=== PATIENT | female | born 1970 | race Hispanic/Latino ===

== ENCOUNTER 2024-06-19 03:51 | Emergency (ER) | payer BC ==
--- OUTSIDE RECORDS SUMMARY | 2024-06-19 03:55 | XMS REPORT | Continuity of Care Document ---
Author Name Unknown Address [address] [facility] [place] [address] [facility] [place] Address [address] [facility] [place] [address] Care Team Providers Care Csr Name Role Phone CHEN HORTON Primary Care Physician UnavailChen Healy Attending Clinician Unavailable VITOR DING Attending Clinician VITOR Devine Attending Clinician Vitor Devine MD Attending Clinician + [phone] PORSHA ROSS Attending Clinician Unavailable PORSHA ROSS Attending Clinician Unavailable CAYETANO LÓPEZ Attending Clinician Unavailnadira villanueva Doctor Unassigned, [place] Attending Clinician BRITT Burgess Attending Clinician Unavailable Marbella Morrow MA Attending Clinician UnavailBritt Robin PA-C Attending Clinician [phone] SHAVON VILLELA Attending Clinician UnavailShavon Vasquez Attending Clinician [phone], [facility] Attending Clinician Unavailable MARIAM FLORENCE Attending Clinician Unavailable RILEY GIBBONS Attending Clinician Unavail Riley Hopper DO Attending Clinician Pob, [facility] Main Attending Clinician PORSHA Manzano Admitting Clinician Unavailable VITOR DING Admitting Clinician BRITT Kelly Admitting Clinician Unavailable Payers Payer Name Policy Type Policy Number Effective Date Expirati on Date Source [employer] [place] - OUT OF STATE [id number] 2022 00:00:00 [facility] 6 [id number] [place] [address] [id number] [facility] C1 [id number] [facility] Problems Condition Name Condition Details Condition Category Status Onset Date Resolution Date Last Treatment Date Treating Clinician Comments Source Encounter for screening colonoscop y Encounter for screening colonoscop y Disease Active 07-30 00:00: 00 [facility] Obesity (BMI 30-39.9) Obesity (BMI 30-39.9) Disease Active 03-03 00:00: 00 [facility] Screening for colorectal cancer Screening for colorectal cancer Disease Active 03-21 00:00: 00 Overview: Formattin g of this note might be different from the original. Added automatic ally from request for surgery [id number] [facility] Need for Tdap vaccinatio n Need for Tdap vaccinatio n Disease Active 2015-02 00:00: 00 [facility] Breast cancer screening Breast cancer screening Disease Active 2015-02 00:00: 00 [facility] Overweight (BMI 25.0-29.9) Overweight (BMI 25.0-29.9) Disease Active 2015-02 00:00: 00 [facility] Vitamin D deficiency Vitamin D deficiency Problem Active [facility] Mixed hyperlipid emia Moderate mixed hyperlipid emia not requiring statin therapy Problem Active [facility] Allergies, Adverse Reactions, Alerts Allergy Name Allergy Type Status Severity Reaction(s) Onset Date Inactive Date Treating Clinician Comments Source NO KNOWN ALLERGIE S Drug Class Active [facility] Social History Social Habit Start Date Stop Date Quantity Comments Source [facility] of Tobacco Use [facility] Sex Assigned At [facility] Alcoholic beverage intake 2024-03-19 00:00:00 2024-03-19 00:00:00 0 /d [facility] Alcohol intake 2023-03-12 00:00:00 2023-03-12 00:00:00 0 /d [facility] History of Social function 2023-03-12 00:00:00 2023-03-12 00:00:00 [facility] Exposure to SARS-CoV-2 (event) 2022-02-26 00:00:00 2022-03-08 08:32:00 Not sure [facility] Tobacco use and exposure 2022-03-08 00:00:00 2022-03-08 00:00:00 Smokeless tobacco non-user [facility] Smoking Status Start Date Stop Date Source Never smoked tobacco [facility] Medications Ordered Medication Name Filled Medication Name Start Date Stop Date Current Medication? Ordering Clinician Indication Dosage Frequency Signature (SIG) Comments Components Source multivitami n tablet 03-19 08:22: 09 Yes 1{tbl} Take 1 tablet by mouth in the morning. [facility] water for irrigation irrigation solution 09-15 11:53: 00 09-15 12:59 :47 No PRN, Starting on Sat09/16/23 at 0653, Until Sat09/16/23 at 0759, Routine, Intra-op [facility] simethicone (GAS RELIEF (SIMETHICON E)) 40 mg/0.6 mL drops 09-15 11:53: 00 09-15 12:59 :47 No PRN, Starting on Sat09/16/23 at 0653, Until Sat09/16/23 at 0759, Routine, Intra-op [facility] lactated ringers IV infusion 1,000 mL 09-15 11:45: 00 09-15 11:52 :00 No 1000mL at 42 mL/hr, 1,000 mL, IV Infusion, ONCE, 1 dose, On Sat09/16/23 at 0645, Routine, DSU Pre-op [facility] omega-3s-dh a-epa-fish oil 750-300-400 -50 mg Cap 08-28 11:18: 44 Yes Take by mouth daily. [facility] cholecalcif ken, vitD3,/vit K2 (VITAMIN D3-VITAMIN K2) 125 mcg (5,000 unit)-100 mcg Cap 08-28 11:16: 50 Yes Take by mouth daily. [facility] Cholecalcif ken, Vitamin D3, (VITAMIN D3) 2,000 unit capsule 08-28 11:16: 50 09-15 00:00 :00 No Take by mouth daily. [facility] vitamin C with jeffrey hips (VITAMIN C) 1,000 mg tablet 08-28 11:16: 50 09-15 00:00 :00 No 1 tablet Orally Once a day [facility] Garlic 1,000 mg Cap 08-28 11:16: 50 09-15 00:00 :00 No as directed Orally [facility] ascorbic acid (VITAMIN C ORAL) 08-28 11:14: 49 09-15 00:00 :00 No Take by mouth. [facility] Cholecalcif ken, Vitamin D3, (VITAMIN D3) 2,000 unit capsule 07-30 13:15: 10 Yes Take by mouth daily. [facility] calcium carbonate (CALCIUM 500 ORAL) 07-30 13:15: 10 Yes Take by mouth. [facility] Garlic 1,000 mg Cap 07-30 13:15: 10 Yes as directed Orally [facility] sodium,pota ssium,mag sulfates 17.5-3.13-1 .6 gram 07-30 00:00: 00 08-02 04:59 :00 No 177mL Take 177 mL by mouth in the morning for 2 doses. [facility] Cholecalcif ken, Vitamin D3, (VITAMIN D3) 2,000 unit capsule 03-12 08:55: 13 Yes Take by mouth daily. [facility] calcium carbonate (CALCIUM 500 ORAL) 03-12 08:55: 13 Yes Take by mouth. [facility] vitamin C with jeffrey hips (VITAMIN C) 1,000 mg tablet 03-12 08:55: 13 Yes 1 tablet Orally Once a day [facility] Garlic 1,000 mg Cap 03-12 08:55: 13 Yes as directed Orally [facility] elsa Farias B.lactis (DIGESTIVE ADVANTAGE ADVANCED ORAL) 2021-02 00:00: 00 09-15 00:00 :00 No [facility] ketorolac (TORADOL) injection 30 mg 09-05 15:10: 00 09-05 15:24 :00 No [id number] 30mg [facility] methylPREDN ISolone (MEDROL, JOSE,) 4 mg tablets 09-05 00:00: 00 03-08 00:00 :00 No [id number] Take by mouth SEE-INSTRU CTIONS. follow package directions [facility] ascorbic acid (VITAMIN C ORAL) 03-08 09:00: 23 Yes Take by mouth. [facility] calcium carbonate (CALCIUM 500 ORAL) 03-03 08:55: 36 Yes Take by mouth. [facility] Cholecalcif ken, Vitamin D3, (VITAMIN D3) 2,000 unit capsule 03-03 08:30: 22 Yes Take by mouth daily. [facility] peg-electro lyte soln 236-22.74-6 .74 -5.86 gram solution 03-21 00:00: 00 03-08 00:00 :00 No [id number] 4000mL Take 4,000 mL by mouth SEE-INSTRU CTIONS. Take as directed [facility] Garlic 1000 MG Garlic 1000 MG No Garlic 1000 MG Biotin 5000 5 MG Biotin 5000 5 MG No 1{capsu le} QD Biotin 5000 5 MG Vitamin D 50 MCG (1999) Vitamin D 50 MCG (1999) No 1{table t} QD Vitamin D 50 MCG (1999) Immunizations Ordered Immunization Name Filled Immunization Name Date Status Comments Source Flu Injectable MDCK Pres-Free (FLUCELVAX) 2024-03-19 00:00:00 Completed TDAP 2023-09-16 06:33:00 Completed [facility] Influenza Virus Vaccine 2023-09-16 06:33:00 Completed [facility] SARS-COV-2 COVID-19 PFIZER VACCINE 2023-09-16 06:33:00 Completed [facility] Influenza Virus Vaccine Quad .5 mL IM 6+ MO (FLUZONE/FLULAVAL/F LUARIX) 2023-09-16 06:33:00 Completed [facility] Influenza Virus Vaccine Quad IM, Preserv and ABX Free 6 MO-64 YRS (FLUCELVAX) 2023-09-16 06:33:00 Completed [facility] TDAP 2023-07-31 13:30:00 Completed [facility] Influenza Virus Vaccine 2023-07-31 13:30:00 Completed [facility] SARS-COV-2 COVID-19 PFIZER VACCINE 2023-07-31 13:30:00 Completed [facility] Influenza Virus Vaccine Quad .5 mL IM 6+ MO (FLUZONE/FLULAVAL/F LUARIX) 2023-07-31 13:30:00 Completed [facility] Influenza Virus Vaccine Quad .5 mL IM 6+ MO (FLUZONE/FLULAVAL/F LUARIX) 2023-07-31 13:30:00 Completed [facility] Influenza Virus Vaccine Quad IM, Preserv and ABX Free 6 MO-64 YRS (FLUCELVAX) 2023-07-31 13:30:00 Completed [facility] TDAP 2023-03-21 00:00:00 Completed [facility] Influenza Virus Vaccine 2023-03-21 00:00:00 Completed [facility] SARS-COV-2 COVID-19 PFIZER VACCINE 2023-03-21 00:00:00 Completed [facility] Influenza Virus Vaccine Quad .5 mL IM 6+ MO (FLUZONE/FLULAVAL/F LUARIX) 2023-03-21 00:00:00 Completed [facility] Influenza Virus Vaccine Quad IM, Preserv and ABX Free 6 MO-64 YRS (FLUCELVAX) 2023-03-21 00:00:00 Completed [facility] TDAP 2023-03-12 09:00:00 Completed [facility] Influenza Virus Vaccine 2023-03-12 09:00:00 Completed [facility] Influenza Virus Vaccine Quad IM, Preserv and ABX Free 6 MO-64 YRS (FLUCELVAX) 2023-03-12 09:00:00 Completed [facility] SARS-COV-2 COVID-19 PFIZER VACCINE 2023-03-12 09:00:00 Completed [facility] Influenza Virus Vaccine Quad .5 mL IM 6+ MO (FLUZONE/FLULAVAL/F LUARIX) 2023-03-12 09:00:00 Completed [facility] Influenza Virus Vaccine Quad .5 mL IM 6+ MO (FLUZONE/FLULAVAL/F LUARIX) 2023-03-12 09:00:00 Completed [facility] TDAP 2023-03-05 00:00:00 Completed [facility] Influenza Virus Vaccine 2023-03-05 00:00:00 Completed [facility] SARS-COV-2 COVID-19 PFIZER VACCINE 2023-03-05 00:00:00 Completed [facility] Influenza Virus Vaccine Quad .5 mL IM 6+ MO (FLUZONE/FLULAVAL/F LUARIX) 2023-03-05 00:00:00 Completed [facility] Influenza Virus Vaccine Quad IM, Preserv and ABX Free 6 MO-64 YRS (FLUCELVAX) 2023-03-05 00:00:00 Completed [facility] Influenza Virus Vaccine Quad IM, Preserv and ABX Free 6 MO-64 YRS (FLUCELVAX) 2022-11-28 00:00:00 Completed Influenza Virus Vaccine Quad IM, Preserv and ABX Free 6 MO-64 YRS 2021-12-28 00:00:00 Completed [facility] Influenza Virus Vaccine Quad IM, Preserv and ABX Free 6 MO-64 YRS 2021-12-28 00:00:00 Completed [facility] Influenza Virus Vaccine Quad IM, Preserv and ABX Free 6 MO-64 YRS 2021-12-28 00:00:00 Completed [facility] Influenza Virus Vaccine Quad .5 mL IM 6+ MO 2020-11-21 00:00:00 Completed [facility] Influenza Virus Vaccine Quad .5 mL IM 6+ MO 2020-11-21 00:00:00 Completed [facility] Influenza Virus Vaccine Quad .5 mL IM 6+ MO 2020-11-21 00:00:00 Completed [facility] Influenza Virus Vaccine Quad .5 mL IM 6+ MO (FLUZONE/FLULAVAL/F LUARIX) 2020-11-21 00:00:00 Completed SARS-COV-2 COVID-19 PFIZER VACCINE 2020-05-30 00:00:00 Completed [facility] SARS-COV-2 COVID-19 PFIZER VACCINE 2020-05-30 00:00:00 Completed [facility] SARS-COV-2 COVID-19 PFIZER VACCINE 2020-05-30 00:00:00 Completed [facility] SARS-COV-2 COVID-19 PFIZER VACCINE 2020-05-30 00:00:00 Completed [facility] SARS-COV-2 COVID-19 PFIZER VACCINE 2020-05-30 00:00:00 Completed [facility] SARS-COV-2 COVID-19 PFIZER VACCINE 2020-05-30 00:00:00 Completed [facility] SARS-COV-2 COVID-19 PFIZER VACCINE 2020-05-30 00:00:00 Completed [facility] SARS-COV-2 COVID-19 PFIZER VACCINE 2020-05-30 00:00:00 Completed [facility] SARS-COV-2 COVID-19 PFIZER VACCINE 2020-05-30 00:00:00 Completed [facility] SARS-COV-2 COVID-19 PFIZER VACCINE 2020-05-09 00:00:00 Completed [facility] SARS-COV-2 COVID-19 PFIZER VACCINE 2020-05-09 00:00:00 Completed [facility] SARS-COV-2 COVID-19 PFIZER VACCINE 2020-05-09 00:00:00 Completed [facility] SARS-COV-2 COVID-19 PFIZER VACCINE 2020-05-09 00:00:00 Completed [facility] SARS-COV-2 COVID-19 PFIZER VACCINE 2020-05-09 00:00:00 Completed [facility] SARS-COV-2 COVID-19 PFIZER VACCINE 2020-05-09 00:00:00 Completed [facility] SARS-COV-2 COVID-19 PFIZER VACCINE 2020-05-09 00:00:00 Completed [facility] SARS-COV-2 COVID-19 PFIZER VACCINE 2020-05-09 00:00:00 Completed [facility] Influenza Virus Vaccine Quad .5 mL IM 6+ MO 2019-10-22 00:00:00 Completed [facility] Influenza Virus Vaccine Quad .5 mL IM 6+ MO 2019-10-22 00:00:00 Completed [facility] Influenza Virus Vaccine Quad .5 mL IM 6+ MO 2019-10-22 00:00:00 Completed [facility] Influenza Virus Vaccine Quad .5 mL IM 6+ MO (FLUZONE/FLULAVAL/F LUARIX) 2019-10-22 00:00:00 Completed Influenza Virus Vaccine Quad .5 mL IM 6+ MO 2018-11-30 00:00:00 Completed [facility] Influenza Virus Vaccine Quad .5 mL IM 6+ MO 2018-11-30 00:00:00 Completed [facility] Influenza Virus Vaccine Quad .5 mL IM 6+ MO 2018-11-30 00:00:00 Completed [facility] Influenza Virus Vaccine 2018-01-25 00:00:00 Completed [facility] Influenza Virus Vaccine 2018-01-25 00:00:00 Completed [facility] Influenza Virus Vaccine 2018-01-25 00:00:00 Completed [facility] Influenza Virus Vaccine 2018-01-25 00:00:00 Completed [facility] Influenza Virus Vaccine 2018-01-25 00:00:00 Completed [facility] Influenza Virus Vaccine 2018-01-25 00:00:00 Completed [facility] Influenza Virus Vaccine 2018-01-25 00:00:00 Completed [facility] Influenza Virus Vaccine 2018-01-25 00:00:00 Completed [facility] TDAP 2016-01-18 00:00:00 Completed [facility] TDAP 2016-01-18 00:00:00 Completed [facility] TDAP 2016-01-18 00:00:00 Completed [facility] TDAP 2016-01-18 00:00:00 Completed [facility] TDAP 2016-01-18 00:00:00 Completed [facility] TDAP 2016-01-18 00:00:00 Completed [facility] TDAP 2016-01-18 00:00:00 Completed [facility] TDAP 2016-01-18 00:00:00 Completed [facility] Vital Signs Vital Name Observation Time Observation Value Comments S ource height 2024-06-15 09:00:00 64 [in_i] Commo n [facility] weight 2024-06-15 09:00:00 192.8 [lb_av] Co mmon [facility] temperature 2024-06-15 09:00:00 97.4 [degF] Com mon [facility] bmi 2024-06-15 09:00:00 33.09 kg/m2 Comm on [facility] oximetry 2024-06-15 09:00:00 100 % Commo n [facility] respiratory rate 2024-06-15 09:00:00 16 /min [facility] blood pressure systolic 2024-06-15 09:00:00 133 mm[Hg] [facility] blood pressure diastolic 2024-06-15 09:00:00 66 mm[Hg] [facility] Systolic blood pressure 2024-03-19 14:22:00 128 mm[Hg] [facility] Diastolic blood pressure 2024-03-19 14:22:00 82 mm[Hg] [facility] Heart rate 2024-03-19 14:16:00 67 /min [facility] Body temperature 2024-03-19 14:16:00 36.94 Gina [facility] Respiratory rate 2024-03-19 14:16:00 16 /min [facility] Body height 2024-03-19 14:16:00 162.6 cm [facility] Body weight 2024-03-19 14:16:00 86.592 kg [facility] BMI 2024-03-19 14:16:00 32.77 kg/m2 [facility] Systolic blood pressure 2023-09-16 13:45:00 139 mm[Hg] [facility] Diastolic blood pressure 2023-09-16 13:45:00 70 mm[Hg] [facility] Heart rate 2023-09-16 13:45:00 53 /min [facility] Oxygen saturation in Arterial blood by Pulse oximetry 2023-09-16 13:45:00 99 /min [facility] Respiratory rate 2023-09-16 13:20:00 14 /min [facility] Body temperature 2023-09-16 13:00:00 36.06 Gina [facility] Body height 2023-08-29 17:50:00 162.6 cm [facility] Body weight 2023-08-29 17:50:00 88.2 kg [facility] BMI 2023-08-29 17:50:00 33.38 kg/m2 [facility] Heart rate 2023-09-16 13:20:00 60 /min [facility] Respiratory rate 2023-09-16 13:20:00 14 /min [facility] Oxygen saturation in Arterial blood by Pulse oximetry 2023-09-16 13:20:00 98 /min [facility] Systolic blood pressure 2023-09-16 13:15:00 107 mm[Hg] [facility] Diastolic blood pressure 2023-09-16 13:15:00 76 mm[Hg] [facility] Body temperature 2023-09-16 13:00:00 36.06 Gina [facility] Body height 2023-08-29 17:50:00 162.6 cm [facility] 2023-08-29 17:50:00 88.2 kg [facility] BMI 2023-08-29 17:50:00 33.38 kg/m2 [facility] Systolic blood pressure 2023-07-31 18:16:00 133 mm[Hg] [facility] Diastolic blood pressure 2023-07-31 18:16:00 81 mm[Hg] [facility] Heart rate 2023-07-31 18:16:00 83 /min [facility] Body temperature 2023-07-31 18:16:00 36.56 Gina [facility] Respiratory rate 2023-07-31 18:16:00 18 /min [facility] Body height 2023-07-31 18:16:00 162.6 cm [facility] Body weight 2023-07-31 18:16:00 88.179 kg [facility] BMI 2023-07-31 18:16:00 33.37 kg/m2 [facility] Oxygen saturation in Arterial blood by Pulse oximetry 2023-07-31 18:16:00 98 /min [facility] height 2023-05-22 08:00:00 64 [in_i] Commo n [facility] weight 2023-05-22 08:00:00 190.2 [lb_av] Co mmon [facility] temperature 2023-05-22 08:00:00 97.3 [degF] Com mon [facility] bmi 2023-05-22 08:00:00 32.64 kg/m2 Comm on [facility] oximetry 2023-05-22 08:00:00 100 % Commo n [facility] respiratory rate 2023-05-22 08:00:00 16 /min [facility] blood pressure systolic 2023-05-22 08:00:00 139 mm[Hg] [facility] blood pressure diastolic 2023-05-22 08:00:00 76 mm[Hg] [facility] Systolic blood pressure 2023-03-12 14:54:00 131 mm[Hg] [facility] Diastolic blood pressure 2023-03-12 14:54:00 80 mm[Hg] [facility] Heart rate 2023-03-12 14:54:00 76 /min [facility] Res[facility] 2023-03-12 14:54:00 18 /min [facility] Body height 2023-03-12 14:54:00 162.6 cm [facility] Body weight 2023-03-12 14:54:00 86.637 kg [facility] BMI 2023-03-12 14:54:00 32.79 kg/m2 [facility] height 2022-05-21 08:20:00 64 [in_i] Commo n [facility] weight 2022-05-21 08:20:00 185.8 [lb_av] Co mmon [facility] temperature 2022-05-21 08:20:00 97.9 [degF] Com mon [facility] bmi 2022-05-21 08:20:00 31.89 kg/m2 Comm on [facility] oximetry 2022-05-21 08:20:00 97 % Commo n [facility] respiratory rate 2022-05-21 08:20:00 16 /min [facility] blood pressure systolic 2022-05-21 08:20:00 133 mm[Hg] [facility] blood pressure diastolic 2022-05-21 08:20:00 74 mm[Hg] [facility] Systolic blood pressure 2022-03-08 14:41:00 125 mm[Hg] [facility] Diastolic blood pressure 2022-03-08 14:41:00 85 mm[Hg] [facility] Heart rate 2022-03-08 14:41:00 64 /min [facility] Body temperature 2022-03-08 14:41:00 36.89 Gina [facility] Respiratory rate 2022-03-08 14:41:00 18 /min [facility] Body height 2022-03-08 14:41:00 162.6 cm [facility] Body weight 2022-03-08 14:41:00 83.008 kg [facility] BMI 2022-03-08 14:41:00 31.41 kg/m2 [facility] Systolic blood pressure 2021-09-05 14:56:00 122 mm[Hg] [facility] Diastolic blood pressure 2021-09-05 14:56:00 70 mm[Hg] [facility] Heart rate 2021-09-05 14:56:00 80 /min [facility] Body temperature 2021-09-05 14:56:00 36.72 Gina [facility] Respiratory rate 2021-09-05 14:56:00 18 /min [facility] Body height 2021-09-05 14:56:00 162.6 cm [facility] Body weight 2021-09-05 14:56:00 82.283 kg [facility] BMI 2021-09-05 14:56:00 31.14 kg/m2 [facility] Oxygen saturation in Arterial blood by Pulse oximetry 2021-09-05 14:56:00 97 /min [facility] height 2021-04-18 08:20:00 64 [in_i] Commo n [facility] weight 2021-04-18 08:20:00 184 [lb_av] Comm on [facility] temperature 2021-04-18 08:20:00 97.5 [degF] Com mon [facility] bmi 2021-04-18 08:20:00 31.58 kg/m2 Comm on [facility] oximetry 2021-04-18 08:20:00 98 % Commo n [facility] respiratory rate 2021-04-18 08:20:00 16 /min [facility] blood pressure systolic 2021-04-18 08:20:00 125 mm[Hg] [facility] blood pressure diastolic 2021-04-18 08:20:00 65 mm[Hg] [facility] Systolic blood pressure 2021-03-08 14:57:00 127 mm[Hg] [facility] Diastolic blood pressure 2021-03-08 14:57:00 85 mm[Hg] [facility] Heart rate 2021-03-08 14:57:00 67 /min [facility] Body temperature 2021-03-08 14:57:00 36.61 Gina [facility] Body height 2021-03-08 14:57:00 162.6 cm [facility] Body weight 2021-03-08 14:57:00 82.373 kg [facility] BMI 2021-03-08 14:57:00 31.17 kg/m2 [facility] height 2020-04-15 09:40:00 64 [in_i] Commo n [facility] weight 2020-04-15 09:40:00 180.8 [lb_av] Co mmon [facility] temperature 2020-04-15 09:40:00 97.7 [degF] Com mon [facility] bmi 2020-04-15 09:40:00 31.03 kg/m2 Comm on [facility] oximetry 2020-04-15 09:40:00 97 % Commo n [facility] respiratory rate 2020-04-15 09:40:00 16 /min [facility] blood pressure systolic 2020-04-15 09:40:00 126 mm[Hg] [facility] blood pressure diastolic 2020-04-15 09:40:00 60 mm[Hg] [facility] Procedures Procedure Date / Time Performed Performing Clinician Source FLU VACC ([id number]), 6 MO-64 YRS, .5ML, IM, TIV (FLUCELVAX) 2024-03-19 14:24:52 Vitor Ding [facility] COLONOSCOPY 2023-09-16 12:10:00 Porsha Ross [facility] ASSIGNMENT OF BENEFITS 2022-08-24 14:03:10 Docto r Unassigned, [place] [facility] XR LUMBAR SPINE 3 VW 2021-09-05 15:21:30 Nora [facility] [facility] ASSIGNMENT OF BENEFITS 2021-07-14 19:39:38 Docdez lewis Unassigned, [place] [facility] Encounters Start Date/Time End Date/Time Encounter Type Admission Type Attending [facility] Care Department Encounter ID Source 2024-05-21 08:28:00 Outpatient Chen [facility] [id number] [facility] 2023-05-20 14:03:00 Outpatient Chen Horton [facility] [id number] [facility] 2022-05-21 08:09:00 Outpatient Chen Horton [facility] [id number] [facility] 2022-05-16 10:42:01 Outpatient Chen Horton [facility] [id number] [facility] 2021-09-05 15:30:00 Outpatient Chen Horton [facility] [id number] [facility] 2021-04-17 15:20:01 Outpatient Chen Horton [facility] [id number] [facility] 2021-03-15 12:33:57 Outpatient Chen Horton [facility] [id number] [facility] 2021-03-15 11:09:57 Outpatient Chen Horton [facility] [id number] [facility] 2025-03-23 08:30:00 2025-03-23 08:30:00 Outpatient VITOR LUJAN MARISOL [facility] [id number] [facility] 2024-06-15 00:00:00 2024-06-15 00:00:00 PREV VISIT EST AGE 40-64 [facility] [id number] [facility] 2024-03-19 08:30:00 2024-03-19 08:53:19 Outpatient R ARETHA-SARITA S, VITOR ARETHA-ZAHEER VELASCOSOL [facility] [id number] [facility] 2024-03-19 08:30:00 2024-03-19 08:53:19 Office Visit Vitor Vu [facility] 1.840.114 350.1.13.10 4.2.7.2.686 [id number] [facility] 2023-10-28 00:00:00 2023-10-28 00:00:00 (TEL) [facility] [id number] [facility] 2023-09-16 06:33:00 2023-09-16 09:43:00 Outpatient R [facility]ANDANA[facility] [id number] [facility] 2023-09-16 06:33:00 2023-09-16 09:43:00 Hospital Encounter Vandana [facility] 1.2840.114 350.1.13.10 4.2.7.2.686 [id number] [facility] 2023-09-16 07:20:00 2023-09-16 08:21:00 [facility] 1.2.840.114 350.1.13.10 4.2.7.2.686 [id number] [facility] 2023-08-30 09:19:13 2023-08-30 23:59:00 Outpatient R ARETHA-SARITA S, VITOR ARETHA-SARITA SZAHEERVITOR [facility] [id number] [facility] 2023-08-30 09:19:13 2023-08-30 23:59:00 Hospital Encounter Aretha-Sarita sZaheerVitor [facility] 1.2.840.114 350.1.13.10 4.2.7.2.686 [id number] [facility] 2023-08-01 15:15:00 2023-08-01 15:15:00 Outpatient R CAYETANO LÓPEZ [facility] [id number] [facility] 2023-07-31 13:30:00 2023-07-31 14:54:05 [facility] [id number] [facility] 2023-07-31 13:30:00 2023-07-31 14:54:[address] [facility] 1.114 350..13.10 4.2.7.2.686 [id number] [facility] 2023-05-23 00:00:00 2023-05-23 00:00:00 [facility] [id number] [facility] 2023-05-22 00:00:00 2023-05-22 00:00:00 PREV VISIT EST AGE 40-64 [facility] [id number] [facility] 2023-03-21 00:00:00 2023-03-21 00:00:00 Patient Secure Msg Doctor Unassigned, [place] [facility] 1.114 350.1.13.10 4.2.7.2.686 [id number] [facility] 2023-03-12 09:00:00 2023-03-12 09:10:48 Outpatient R VITOR VU MARISOL [facility] [id number] [facility] 2023-03-12 09:00:00 2023-03-12 09:10:48 Office Visit Vitor Vu [facility] 1.114 350.1.13.10 4.2.7.2.686 [id number] [facility] 2023-03-12 09:00:00 2023-03-12 09:00:00 Outpatient VITOR LUJAN MARISOL [facility] [id number] [facility] 2023-03-05 00:00:00 2023-03-05 00:00:00 Pre Visit Outreach Marbella Morrow 1.840.114 350.1.13.10 4.2.7.2.686 [id number] [facility] 2022-08-24 09:06:36 2022-08-24 23:59:00 Outpatient BRITT HICKMAN [facility] [id number] [facility] 2022-08-24 09:06:36 2022-08-24 23:59:00 Hospital Encounter Britt Vilchis [facility] 1.840.114 350.1.13.10 4.2.7.2.686 [id number] [facility] 2022-08-24 00:00:00 2022-08-24 00:00:00 Orders Only Doctor Unassigned, [place] [facility] 1.840.114 350.1.13.10 4.2.7.2.686 [id number] [facility] 2022-07-19 00:00:00 2022-07-19 00:00:00 Outpatient BRITT HICKMAN [facility] [id number] [facility] 2022-05-21 00:00:00 2022-05-21 00:00:00 PREV VISIT EST AGE 40-64 [facility] [id number] [facility] 2022-03-08 09:00:00 2022-03-08 09:30:00 Office Visit Britt Vilchis [facility] 1.840.114 350.1.13.10 4.2.7.2.686 [id number] [facility] 2022-03-08 09:00:00 2022-03-08 09:00:00 Outpatient BRITT HICKMAN [facility] [id number] [facility] 2021-09-05 10:11:18 2021-09-05 23:59:00 Outpatient R MANOHAR [facility] [id number] [facility] 2021-09-05 10:11:18 2021-09-05 23:59:00 Hospital Encounter Manohar, Critical access hospital?[facility] 1.840.114 350.1.13.10 4.2.7.2.686 [id number] [facility] 2021-09-05 10:00:00 2021-09-05 10:20:58 Urgent Care Manohar Critical access hospital?[facility] 1.84.114 350.1.13.10 4.2.7.2.686 [id number] [facility] 2021-07-14 14:40:45 2021-07-14 23:59:00 Outpatient BRITT HICKMAN [facility] [id number] [facility] 2021-07-14 14:40:00 2021-07-14 23:59:00 Hospital Encounter Britt Vilchis [facility] 1.84.114 350.1.13.10 4.2.7.2.686 [id number] [facility] 2021-07-14 00:00:00 2021-07-14 00:00:00 Orders Only Doctor Unassigned, [place] [facility] 1.2840.114 350.1.13.10 4.2.7.2.686 [id number] [facility] 2021-06-08 00:00:00 2021-06-08 00:00:00 (TEL) [facility]C [facility] [id number] [facility] 2021-04-18 00:00:00 2021-04-18 00:00:00 PREV VISIT EST AGE 40-64 STLMLC [facility] [id number] [facility] 2021-03-08 09:30:00 2021-03-08 09:30:00 [employer] Visit 2, Adc Lab Britt Vilchis [facility] 1.2.840.114 350.1.13.10 4.2.7.2.686 [id number] [facility] 2021-03-08 09:00:00 2021-03-08 09:15:09 Outpatient Adi VILCHIS [facility] [id number] [facility] 2021-03-08 09:00:00 2021-03-08 09:15:09 Office Visit Britt Vilchis [facility] 1.2.840.114 350.1.13.10 4.2.7.2.686 [id number] [facility] 2020-05-30 13:30:00 2020-05-30 13:30:00 Outpatient MARIAM UMANZOR [facility] [id number] [facility] 2020-05-09 13:30:00 2020-05-09 13:30:00 Outpatient RILEY GIBBONS [facility] [id number] [facility] 2020-05-05 00:00:00 2020-05-05 00:00:00 Patient Outreach Riley Gibbons [facility] 1..840.114 350.1.13.10 4.2.7.2.686 [id number] [facility] 2020-04-15 00:00:00 2020-04-15 00:00:00 PREV VISIT EST AGE 40-64 STLMLC [facility]C [id number] [facility] 2020-03-23 08:34:28 2020-03-23 23:59:00 [facility] 1.114 350.1.13.10 4.2.7.2.686 [id number] [facility] 2020-03-23 00:00:00 2020-03-23 00:00:00 Outpatient Adi MENDESDEJA [facility] [id number] [facility] 2020-03-03 08:22:36 2020-03-03 09:13:43 Office Visit Deng [facility] 1.114 350.1.13.10 4.2.7.2.686 [id number] [facility] 2020-03-03 08:30:00 2020-03-03 08:30:00 Outpatient R DENG [facility] [id number] [facility] 2019-04-14 11:00:00 2019-04-14 11:00:00 [facility] [id number] [facility] 2019-04-03 08:01:58 2019-04-03 23:59:00 Outpatient Adi DENG [facility] [id number] [facility] 2019-04-03 08:01:00 2019-04-03 23:59:00 Hospital Encounter Deng [facility] 1..114 350.1.13.10 4.2.7.2.686 [id number] [facility] 2019-04-03 00:00:00 2019-04-03 00:00:00 Orders Only Doctor Unassigned, [place] [facility] 1.114 350.1.13.10 4.2.7.2.686 [id number] [facility] 2019-03-03 08:58:11 2019-03-03 15:20:43 [employer] Visit Pob, Monika Lab Main Britt Vilchis [facility] 1.2.840.114 350.1.13.10 4.2.7.2.686 [id number] [facility] 2019-03-03 08:18:04 2019-03-03 09:08:43 Office Visit Britt Vilchis [facility] 1.2.840.114 350.1.13.10 4.2.7.2.686 [id number] [facility] 2019-03-03 00:00:00 2019-03-03 00:00:00 Orders Only Doctor Unassigned, [place] [facility] 1.2.840.114 350.1.13.10 4.2.7.2.686 [id number] [facility] Results Test Description Test Time Test Comments Results Result Co mments Source History and Physical Notes Date/Time Note Provider Source 2023-09-16 06:58:07 Interval H&P: I interviewed and examined the patient today. Additionally, I reviewed laboratory results, imaging, and microbiology. Compared to the most recent H&P, there have been no major changes. The risks of the procedure were explained. All questions were answered, voiced understanding and agreement. Informed written consent was obtained. Plan is to proceed with colonoscopy. Jamie Ewing MD 09/16/23 6:58 AM GENERAL SURGERY CLINIC NOTE Reason for Visit / Chief Complaint: Screening colonoscopy History of Present Illness: Alison Medley is a 52 year old female with PMHx as below who presents for screening colonoscopy. This is her first colonoscopy. She had started pre-biotics and noticed some constipation. She has been been off now for 4-5 months, bowel movement is getting regular - daily bowel movements, soft, normal. +Blood, but reports hemorrhoid. She feels pain at the hemorrhoid. No unexplained weight loss. She is gaining weight, she is going through menopause. x 2. No family history of colon cancer Past Medical History: Past Medical History: Diagnosis Date Abnormal uterine bleeding Leiomyoma of uterus Past Surgical History: Past Surgical History: Procedure Laterality Date SECTION ENDOMETRIAL ABLATION 03/2012 TUBAL LIGATION Allergies: No Known Allergies Medications: Current Discharge Medication List CONTINUE these medications which have NOT CHANGED Details cholecalciferol, vitD3,/vit K2 (VITAMIN D3-VITAMIN K2) 125 mcg (5,000 unit)-100 mcg Cap Take by mouth daily. yjelp-9u-vea-epa-fish oil [phone] mg Cap Take by mouth daily. !! ascorbic acid (VITAMIN C ORAL) Take by mouth. calcium carbonate (CALCIUM 500 ORAL) Take by mouth. calcium citrate/vitamin D3 (CITRACAL + D ORAL) Citracal + D Garlic 1,000 mg Cap as directed Orally L.acidoph,paracasei, B.lactis (DIGESTIVE ADVANTAGE ADVANCED ORAL) !! vitamin C with jeffrey hips (VITAMIN C) 1,000 mg tablet 1 tablet Orally Once a day BIOTIN ORAL Take by mouth. Cholecalciferol, Vitamin D3, (VITAMIN D3) 2,000 unit capsule Take by mouth daily. !! - Potential duplicate medications found. Please discuss with provider. Current Facility-Administered Medications Medication Dose Route Frequency Last Rate Last Admin simethicone (GAS RELIEF (SIMETHICONE)) 40 mg/0.6 mL drops PRN 80 mg at 09/16/23 0653 water for irrigation irrigation solution PRN 1,000 mL at 09/16/23 0653 Family History: Family History Problem Relation Age of Onset Other - see comments Mother Thyroid d/o Other - see comments Father Oculopharyngeal Muscular Dystrophy Genetic Father Hypertension Father Cancer Maternal Grandfather throat cancer Breast Cancer Other Arthritis NoFHx Asthma NoFHx defects NoFHx Colon Cancer NoFHx Ovarian Cancer NoFHx Uterine Cancer NoFHx Depression NoFHx Diabetes NoFHx Heart NoFHx Mental retardation NoFHx High cholesterol NoFHx Neurological NoFHx Osteoporosis NoFHx Psychiatry NoFHx Social History: Social History Socioeconomic History Marital status: Number of children: 2 Years of education: 12 Occupational History 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 Tobacco Use Smoking status: Never Smokeless tobacco: Never Vaping Use Vaping status: Never Used Substance and Sexual Activity Alcohol use: No Alcohol/week: 0.0 standard drinks of alcohol Drug use: Never Sexual activity: Yes Partners: Male control/protection: Surgical Social History Narrative Denies domestic violence or abuse Lives with and kids Feels safe at home Review of Systems: A 14 point ROS was obtained, only positive responses are in BOLD Constitutional: Fever, chills, loss of appetite, fatigue, unexplained weight loss, unexplained weight gain, weakness Head/Ears/Nose/Mouth/Throat: Head: Headache, head injury, neck pain, neck stiffness Ears: Ear discharge, hearing loss, ear pain, tinnitus Nose: Nose bleeds, sinus congestion, runny nose, postnasal drip, sneezing, sinus pressure Mouth: Dental problems, mouth sores, sore tongue, dry mouth Throat: Sore throat, trouble swallowing, voice change Eyes: Discharge, itching, pain, redness, pain, vision disturbance, blurred vision, vision loss, cataracts, glaucoma CV: Chest pain, palpitations, arrhythmias, dyspnea on exertion, othopnea, claudication, edema, coronary artery disease/history of [place] Respiratory: Cough, sputum production, hemoptysis, wheezing, shortness of breath, sleep apnea GI: Dysphagia, abdominal pain, abdominal distention, indigestion, nausea, vomiting, diarrhea, constipation, hematemesis, blood in stool or dark stool, rectal bleeding, rectal pain, jaundice : Frequency, urgency, pain or burning with urination, flank pain, hematuria, incontinence, change in urinary stream, discharge, bleeding, pelvic pain, irregular menses Musculoskeletal: Muscle pain, joint pain, joint swelling, back pain, stiffness, weakness, limitation of motion, arthritis, trauma Integumentary/Breast: Integumentary: Rash, itching, pigmented lesions, lumps, tenderness, swelling, wound Breast: Pain, lumps, nipple discharge, skin changes Neurological: Weakness, sensory changes, syncope, seizures, headache, numbness, tingling, tremor, trauma Hematologic/Lymphatic: Hematologic: Bleeding tendency, easy bruising, history of blood clots, anticoagulation/antiplatelet therapy Lymphatic: Lymphadenopathy Endocrine: Polyuria, polydipsia, polyphagia, heat or cold intolerance, hair loss, appetite changes Allergic/Immunologic: Allergic: Allergic reactions Immunologic: Recurrent infections Psychiatric: Agitation, confusion, decreased concentration, hallucinations, anxiety, self-injury, sleep disturbance, suicidal ideation Physical Exam: BP 117/66 | Pulse 67 | Temp 36.8 ?C (98.3 ?F) | Resp 17 | Ht 1.626 m (5' 4") | Wt 88.2 kg (194 lb 7.1 oz) | SpO2 96% | BMI 33.38 kg/m? Constitutional: Awake, alert, oriented, in no acute distress Head: Normocephalic, atraumatic Respiratory: Symmetry of chest wall motion, clear to ausculation bilaterally, no respiratory distress GI: Soft abdomen, non-tender, low pffannisteal Extremities: No clubbing, cyanosis, or edema Musculoskeletal: Normal tone and strength, normal range of motion Neurologic: CN II through XII grossly intact, no focal deficits Skin: Warm and dry, capillary refill <2 seconds, no jaundice, rashes, lesions, or erythema Psychiatric: Appropriate mood and affect, no obvious deficits of insight or judgment Labs: CBC OSH 05/22/23 Hgb of 13 Cr 0.76 BMP GLUCOSE-Q (no units) Date Value 02/27/2017 NEGATIVE Hepatic Function Panel No results found for: "ALB", "TPRO", "BILIT", "BILIUNCON", "BILICONJ", "ALT", "AST", "ALKPHOS" Microbiology: There are no current results on file for these tests and/or test for 1 year.QUANTATIVE CULTURE There are no current results on file for these tests and/or test for 1 year.wound culture Radiology: No final results containing an impression from the past 30 days were found. No results found for this visit on 09/16/23. Assessment: Alison Medley is a 52 year old female here discussion of colonoscopy. First time No family history Plan: Risks and benefits of colonoscopy discussed She agrees to proceed Prep: Fina Ross M.D. Associated attestation - Porsha Ross MD - 09/16/2023 7:19 AM CDT Patient seen and examined in the preop. Reports a couple of episodes of vomiting with Suprep. She did complete it, but she did vomit. She has had several Bms and reports that it is mostly clear. We will proceed with colonoscopy. No family history First colonoscopy Reports occasional hemorrhoidal bleeding Porsha Ross MD [facility] Notes Date/Time Note Provider Source 2023-08-29 11:25:24 Images from the original note were not included. Your upcoming procedure is at [facility] on 09/16/23. The address is [address] [place] [address], [id number].The nursing staff at [facility] will call you the workday before your procedure to let you know what time to arrive. When you arrive, please go inside and sign in at the desk. Please note: You may not travel home alone after your procedure and that includes in a taxi or by bus. We must speak to your Responsible Adult (who will be picking you up) the morning of your procedure, before the start of your procedure. This person must be an adult over the age of 18 years of age. Maintain a clear liquid diet the entire day before your procedure. Do not drink anything containing red, blue, or purple dyes. Follow the instructions of your bowel prep as directed by you physician. You may also take your medications the morning of your procedure with a sip of water as directed by physician. Anticoagulants will be per physician Guidance. Medication Note(s)/Instructions: The patient was instructed to hold Fish Oil 1 week prior to procedure. The patient educated on the bowel prep and medication. Understanding was verbalized, with no questions or concerns at this time. Teach-back method repeated and confirmed. There are no pre-op orders for labs or further testing at this time. No questions or concerns on bowel prep at this time. [facility] 2023-07-31 13:30:00 Addended by: INOCENCIO MARTÍNEZ RN on: 07/31/2023 02:06 PM Modules accepted: Orders [facility]
[2024-06-19] MEDS ORDERED: ONDANSETRON 4 MG/2 ML VIAL ONE (04:43)
[2024-06-19] MEDS ORDERED: NA CHLORIDE 0.9% 1,000 ML ONE (04:43)
[2024-06-19 05:07] LABS: Absolute Basophils 0.1 K/uL (0-0.5); Absolute Eosinophils 0.1 K/uL (0-0.5); Absolute Lymphocytes (CBC) 1.8 K/uL (0.7-4.9); Absolute Monocytes 0.7 K/uL (0.1-1.3); Absolute Neutrophil 10.8 K/uL (1.8-8.0); Basophils % 0.4 % (0-1.3); Eosinophils % 0.9 % (0-4.4); Hematocrit 41.7 % (36.0-45.0); Lymphocytes % 13.4 % (15.3-44.8); MCHC 33.6 g/dL (32.0-36.0); MCV 80.4 fL (80-100); MPV 8.2 fL (7.6-11.3); Monocytes % 5.5 % (3.3-12.3); Neutrophils % 79.8 % (41.7-73.7); Platelets 264 thou/uL (152-406); RBC Red Blood Cell Count 5.19 M/uL (3.86-4.86); Red Cell Distribution Width 14.8 % (12.1-15.2)
[2024-06-19] MEDS ORDERED: MORPHINE 4 MG/ML SYR ONE (05:12)
[2024-06-19 05:32] LABS: Albumin/Globulin Ratio 1.1 (1.1-1.8); Anion Gap 8.8 mEq/L (5.0-15.0); Bilirubin Total 0.7 mg/dL (0.2-1.0); Globulin 3.8 g/dL (2.3-3.5); Potassium 3.8 mEq/L (3.5-5.1); Protein, Total 7.8 g/dL (6.4-8.2)
[2024-06-19 05:34] LABS: Specific Gravity 1.026 (1.005-1.030); Sqamous Epithelial <5 /HPF (None Seen); Urine Bacteria None Seen /HPF (<20); Urine Bilirubin NEGATIVE (Negative); Urine Blood Negative (Negative); Urine Clarity Turbid (Clear); Urine Color Light-Yellow (Yellow); Urine Culture Reflex Order NOT NEEDED; Urine Glucose NEGATIVE (Negative); Urine Ketones NEGATIVE (Negative); Urine Microscopic Reflex YN ORDER UMIC; Urine Mucus Slight /HPF (None Seen); Urine Nitrite NEGATIVE (Negative); Urine Protein TRACE (Negative); Urine RBC <5 /HPF (None Seen); Urine Urobilinogen Normal (Normal); Urine WBC <5 /HPF (<5); Urine pH 5.5 (5.0-7.0)
--- NOTE | 2024-06-19 07:33 | RAD REPORT ---
EXAMINATION: Abdomen Pelvis W Contrast CLINICAL INDICATION: Female, 53 years old.ABD PAIN TECHNIQUE: CT abdomen and pelvis was performed, after the administration of IV contrast, as per [facility]. Axial, sagittal and coronal reconstructions were obtained. One or more of the following dose reduction techniques were used: Automated exposure control, adjustment of the mA and/o r kV according to patient size, and/or iterative reconstruction. Unless otherwise specified, incidental findings do not require dedicated imaging follow-up. [id number]. COMPARISON: No prior exam. FINDINGS: LOWER CHEST: No acute process identified.No significant pericardial effusion. Mild circumferential th ickening of the distal esophagus which could reflect esophagitis. UPPER GI: No significant abnormality. LIVER: No significant focal abnormality. GALLBLADDER/BILE DUCTS: No biliary ductal dilatation.? PANCREAS: No mass, ductal dilation, or erickson-pancreatic fluid. SPLEEN: Unremarkable. ADRENALS: No adrenal masses. KIDNEYS AND URETERS: No hydronephrosis.No suspicious renal mass. ABDOMINAL AORTA AND OTHER VESSELS: Normal caliber aorta and IVC. PERITONEUM: Nonspecific free fluid. LYMPH NODES: No pathologic lymphadenopathy. ABDOMINAL WALL: Unremarkable SMALL BOWEL/COLON: Small bowel has normal course and caliber. No colonic wall thickening or pericolon ic inflammatory changes.Normal appendix. URINARY BLADDER: Underdistended but grossly unremarkable. REPRODUCTIVE ORGANS: Solid appearing right adnexal mass measuring 10.7 x 8.7 x 10 cm. No macroscopic fat. Small uterine fibroid also present at the uterine fundus. MUSCULOSKELETAL: No acute or suspicious osseous abnormality. ADDITIONAL FINDINGS: None. 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 Recommend gynecologic consultation. Nonspecifi c free fluid.
--- NOTE | 2024-06-19 08:44 | RAD REPORT ---
Pelvis Complete CLINICAL INDICATION: Female 53 years old right ovarian mass TECHNIQUE: Real-time ultrasonography of the pelvis was performed transabdominally. Color and spectral Doppler evaluation of the ovaries was performed. [id number]. COMPARISON: Same day CT FINDINGS: UTERUS AND CERVIX: The uterus measures 6.1 x 3.2 x 4.7 cm (cervix to fundus x AP x transverse). The u terus is normal. No masses seen . Fibroid at the fundus noted on the CT was not visualized. The endometrial stripe was not visualized. Only a transabdominal exam was performed. RIGHT OVARY: Enlarged with solid mass. The right ovary measures 7 x 13.4 x 10 cm with volume of 492 m L. Normal color and spectral Doppler evaluation of the right ovary.. LEFT OVARY: Nonvisualized. FREE FLUID: Mild free fluid present. IMPRESSION: 1. Significantly enlarged right ovary likely due to presence of a solid mass. Normal ovarian tissue i s not appreciated. Recommend gynecologic consultation or referral. This is consistent with the presence of a neoplasm which could be benign or malignant. 2. Left ovary not visualized. Right ovary has vascular flow.
[2024-06-19] MEDS ORDERED: HYDROCODONE/APAP 5/325 MG TAB ONE (09:04)
--- NOTE | 2024-06-19 09:06 | ER ---
Nurse's Notes [facility] Name: Alison Fried Age: 53 yrs Sex: Female : 1970 Arrival Date: 06/19/2024 Time: 03:51 Bed 13 Private MD: Diagnosis: Right sided Ovarian Mass;RLQ abdominal pain Presentation: 06/19 04:20 Chief complaint: Patient states: Pt reports sharp periumbilical pain that radiates kb3 around to right flank. Denies urinary symptoms. 04:20 Coronavirus screen: Vaccine status: Patient reports being unvaccinated. Client denies kb3 travel out of the [place] in the last 14 days. Ebola Screen: Patient negative for fever greater than or equal to 101.5 degrees Fahrenheit, and additional compatible Ebola Virus Disease symptoms Patient denies exposure to infectious person. Patient denies travel to an Ebola-affected area in the 21 days before illness onset. Initial Sepsis Screen: Does the patient meet any 2 criteria? No. Patient's initial sepsis screen is negative. Does the patient have a suspected source of infection? No. Patient's initial sepsis screen is negative. Risk Assessment: Do you want to hurt yourself or someone else? Patient reports no desire to harm self or others. Onset of symptoms was June 18, 2024. 04:20 Method Of Arrival: Ambulatory kb3 04:20 Acuity: SUE 3 kb3 04:20 Acuity: SUE 2 kb3 Triage Assessment: 05:04 General: Appears in no apparent distress. uncomfortable, Behavior is calm, cooperative. kb3 Pain: Complains of pain in umbilical area Pain radiates to right low back Pain currently is 10 out of 10 on a pain scale. Quality of pain is described as sharp. GI: Reports lower abdominal pain, upper abdominal pain, nausea, vomiting. INGREDIENT SPECIALIST: 05:04 LMP N/A - , Not kb3 Historical: - Allergies: 05:04 No Known Allergies; kb3 - Home Meds: 05:04 None [Active]; kb3 - PMHx: 05:04 None; kb3 - PSHx: 05:04 section; Uterine ablation; kb3 - Immunization history:: Adult Immunizations up to date, Client reports having NOT received the Covid vaccine. Last tetanus immunization: up to date. - Infectious Disease History:: Denies. - Social history:: Smoking status: Patient denies any tobacco usage or history of. Screenin:08 [facility] ED Fall Risk Assessment (Adult) History of falling in the last 3 months, kb3 including since admission No falls in past 3 months (0 pts) Confusion or Disorientation No (0 pts) Intoxicated or Sedated No (0 pts) Impaired Gait No (0 pts) Mobility Assist Device Used No (0 pt) Altered Elimination No (0 pt) Score/Fall Risk Level 0 - 2 = Low Risk Oriented to surroundings. Abuse screen: Denies threats or abuse. Denies injuries from another. Nutritional screening: No deficits noted. Tuberculosis screening: No symptoms or risk factors identified. Assessment: 05:08 Reassessment: Patient appears in no apparent distress at this time. No changes from kb3 previously documented assessment. General: See triage assessment. 05:43 Reassessment: Patient appears in no apparent distress at this time. Patient and/or kb3 family updated on plan of care and expected duration. Pain level reassessed. Patient states feeling better. 07:24 Reassessment: Patient and/or family updated on plan of care and expected duration. Pain ap3 level reassessed. Patient is alert, oriented x 3, equal unlabored respirations, skin warm/dry/pink. Patient states feeling better. Patient states symptoms have improved. General: Appears comfortable, Behavior is calm, cooperative, appropriate for age. Neuro: Level of Consciousness is awake, alert, obeys commands, Oriented to person, place, time, situation. Cardiovascular: Patient's skin is warm and dry. Respiratory: Airway is patent Respiratory effort is even, unlabored, Respiratory pattern is regular, symmetrical. GI: Abdomen is non-distended. Vital Signs: 04:20 BP 158 / 91; Pulse 78; Resp 18; Temp 97.9; Pulse Ox 96% ; Weight 87.54 kg; Height 5 ft. kb3 74 in. ; Pain 10/10; 05:30 BP 133 / 75; Pulse 61; Resp 17 S; Pulse Ox 97% on R/A; ha1 07:25 BP 115 / 57; Pulse 57; Resp 17; Pulse Ox 99% ; ap3 09:07 BP 126 / 79; Pulse 65; Resp 17; Pulse Ox 99% on R/A; Pain 5/10; ap3 04:20 Body Mass Index 7.56 (87.54 kg, 340.36 cm) kb3 04:20 Pain Scale: Adult kb3 09:07 Pain Scale: Adult ap3 ED Course: 03:55 Patient arrived in ED. gm2 04:50 Bipin Oconnell MD is Attending Physician. sp3 05:04 Triage completed. kb3 05:04 Arm band placed on right wrist. kb3 05:08 Patient has correct armband on for positive identification. Placed in gown. Bed in low kb3 position. Side rails up X 1. Provided Education on: Plan of care. 05:08 No provider procedures requiring assistance completed. Inserted saline lock: 20 gauge kb3 in right antecubital area, using aseptic technique. 06:58 CT Abd/Pelvis - IV Contrast Only In Process Unspecified. EDMS 07:18 Attending Physician role handed off by Bipin Oconnell MD ms3 07:18 Fazal Simpson DO is Attending Physician. ms3 07:24 Dipti Gutierrez, DONNIE is Primary Nurse. ap3 08:34 Pelvis Complete US In Process Unspecified. EDMS 09:04 Manju Jones MD is Referral Physician. ms3 09:20 IV discontinued, intact, bleeding controlled, No redness/swelling at site. Pressure ap3 dressing applied. Administered Medications: 04:48 Drug: NS 0.9% IV 1000 ml IV at 1 bolus Per protocol; to be given as a bolus over 60 kb3 minutes Route: IV; Rate: 1 bolus; Site: right antecubital; 09:20 Follow up: IV Status: Completed infusion; IV Intake: 1000ml ap3 04:49 Drug: Ondansetron IVP 4 mg IVP once; over 2 minutes Route: IVP; Site: right antecubital;kb3 05:42 Follow up: Response: No adverse reaction; Nausea is decreased kb3 05:10 Drug: morphine IVP or IV 4 mg IVP once over 4 mins Route: IVP; Infused Over: 4 mins; kb3 Site: right antecubital; 05:42 Follow up: Response: No adverse reaction; Pain is decreased kb3 09:12 Drug: HYDROcodone-acetaminophen PO 5 mg-325 mg 1 tabs PO once Route: PO; ap3 09:20 Follow up: Response: Medication administered at discharge. ap3 Medication: 05:08 VIS not applicable for this client. kb3 Intake: 09:20 IV: 1000ml; Total: 1000ml. ap3 Outcome: 09:06 Discharge ordered by . ms3 09:20 Discharged to home ambulatory, with family, ap3 09:20 Condition: good 09:20 Discharge instructions given to patient, Instructed on discharge instructions, follow up and referral plans. medication usage, Demonstrated understanding of instructions, follow-up care, medications, 09:21 Patient left the ED. ap3 Signatures: Dispatcher [employer] EDMS Dipti Gutierrez, RN RN ap3 Fazal Simpson DO DO ms3 Bipin Oconnell MD MD sp3 Isabella Graves RN RN ha1 Pattie Cain RN RN kb3 Thuy Sanchez gm2 Corrections: (The following items were deleted from the chart) 05:08 05:04 LMP N/A - Hysterectomy, Not kb3 kb3 09:12 09:07 BP 126 / 79; Pulse 65bpm; Resp 17bpm; Pulse Ox 99% RA; ap3 ap3
--- NOTE | 2024-06-19 09:06 | EDPHYS ---
Physician Documentation [facility] Name: Alison Fried Age: 53 yrs Sex: Female : 1970 Arrival Date: 06/19/2024 Time: 03:51 Bed 13 Private MD: ED Physician Fazal Simpson HPI: 06/19 05:46 This 53 yrs old Female presents to ER via Ambulatory with complaints of sp3 Nausea/Vomiting, Abdominal Pain. 05:46 53-year-old female with no past medical history presents with a 24-hour off-and-on sp3 history of periumbilical pain coupled with nausea and mild vomiting nonbloody nonbilious. Patient denies any diarrhea, back pain, dysuria, fever, chest pain, shortness of breath or any other signs or symptoms on ROS at this time. Her past surgical history consists of x 2 without any other intra-abdominal surgeries.. 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 Last tetanus immunization: up to date. - Infectious Disease History:: Denies. - Social history:: Smoking status: Patient denies any tobacco usage or history of. ROS: 05:47 Constitutional: Negative for fever, chills, and weight loss, Eyes: Negative for injury, sp3 pain, redness, and discharge, ENT: Negative for injury, pain, and discharge, Neck: Negative for injury, pain, and swelling, Cardiovascular: Negative for chest pain, palpitations, and edema, Respiratory: Negative for shortness of breath, cough, wheezing, and pleuritic chest pain, Back: Negative for injury and pain, MS/Extremity: Negative for injury and deformity, Skin: Negative for injury, rash, and discoloration, Neuro: Negative for headache, weakness, numbness, tingling, and seizure, Psych: Negative for depression, anxiety, suicide ideation, homicidal ideation, and hallucinations, Allergy/Immunology: Negative for hives, rash, and allergies, Endocrine: Negative for neck swelling, polydipsia, polyuria, polyphagia, and marked weight changes, Hematologic/Lymphatic: Negative for swollen nodes, abnormal bleeding, and unusual bruising, 05:47 All other systems are negative, Exam: 05:47 Constitutional: This is a well developed, well nourished patient who is awake, alert, sp3 and in no acute distress. Head/Face: Normocephalic, atraumatic. Eyes: Pupils equal round and reactive to light, extra-ocular motions intact. Lids and lashes normal. Conjunctiva and sclera are non-icteric and not injected. Cornea within normal limits. Periorbital areas with no swelling, redness, or edema. Neck: Trachea midline, no thyromegaly or masses palpated, and no cervical lymphadenopathy. Supple, full range of motion without nuchal rigidity, or vertebral point tenderness. No Meningismus. Chest/axilla: Normal chest wall appearance and motion. Nontender with no deformity. No lesions are appreciated. Cardiovascular: Regular rate and rhythm with a normal S1 and S2. No gallops, murmurs, or rubs. Normal PMI, no JVD. No pulse deficits. Respiratory: Lungs have equal breath sounds bilaterally, clear to auscultation and percussion. No rales, rhonchi or wheezes noted. No increased work of breathing, no retractions or nasal flaring. Back: No spinal tenderness. No costovertebral tenderness. Full range of motion. Skin: Warm, dry with normal turgor. Normal color with no rashes, no lesions, and no evidence of cellulitis. MS/ Extremity: Pulses equal, no cyanosis. Neurovascular intact. Full, normal range of motion. Neuro: Awake and alert, GCS 15, oriented to person, place, time, and situation. Cranial nerves II-XII grossly intact. Motor strength 5/5 in all extremities. Sensory grossly intact. Cerebellar exam normal. Normal gait. Psych: Awake, alert, with orientation to person, place and time. Behavior, mood, and affect are within normal limits. 05:47 Abdomen/GI: Patient has pain to palpation periumbilically without peritoneal signs, sp3 rebound or guarding. Pain extends inferiorly towards the bladder., Vital Signs: 04:20 BP 158 / 91; Pulse 78; Resp 18; Temp 97.9; Pulse Ox 96% ; Weight 87.54 kg; Height 5 ft. kb3 74 in. ; Pain 10/10; 05:30 BP 133 / 75; Pulse 61; Resp 17 S; Pulse Ox 97% on R/A; ha1 07:25 BP 115 / 57; Pulse 57; Resp 17; Pulse Ox 99% ; ap3 09:07 BP 126 / 79; Pulse 65; Resp 17; Pulse Ox 99% on R/A; Pain 5/10; ap3 04:20 Body Mass Index 7.56 (87.54 kg, 340.36 cm) kb3 04:20 Pain Scale: Adult kb3 09:07 Pain Scale: Adult ap3 MDM: 05:01 Medical Screening Exam initiated sp3 05:47 Data reviewed: vital signs, nurses notes, lab test result(s), radiologic studies. ED sp3 course: 53-year-old female with periumbilical pain. Differential diagnosis includes functional abdominal pain, appendicitis, biliary pathology including cholecystitis, gastritis, colitis, PARALEGAL SPECIALIST pathology, UTI/pyelonephritis spectrum, kidney stone/ureterolithiasis spectrum, among others. I am not highly suspicious of sepsis, shock, vascular otology including aorta or any other critical process at this time. Workup will include CT scan of the abdomen pelvis, general labs, UA and general supportive care with pain and nausea medications as indicated. Disposition pending workup and patient course.. 09:17 Differential diagnosis: Nonspecific abd pain, appendicitis, diverticulitis, viral ms3 gastroenteritis, gastroenteritis. Management of patient was discussed with the following: [employer] P[employer] Designer: Dr Rivers- Will follow up with patient on Saturday. I considered the following discharge prescriptions or medication management in the emergency department Medications were administered in the Emergency Department. See MAR. Counseling: I had a detailed discussion with the patient and/or guardian regarding the historical points, exam findings, and any diagnostic results supporting the discharge/admit diagnosis, lab results, radiology results, the need for outpatient follow up, to return to the emergency department if symptoms worsen or persist or if there are any questions or concerns that arise at home. Special discussion: Based on the patient's Hx, exam, and Dx evaluation, there is no indication for emergent surgery or inpatient Tx. It is understood by the patient/guardian that if the Sx's persist or worsen they need to return immediately for re-evaluation. ED course: Discussed labs and imaging with patient. 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 Discussed case with Dr. Rivers and patient's information sent to him. He will contact patient on Saturday for follow-up and treatment. Discussed this with patient. She understands and agrees with plan. All questions were answered. Patient's pain is well-controlled at this time, she is alert and oriented x 4, in no apparent distress, nontoxic-appearing, speaking full sentences.. 06/19 04:45 Order name: CBC with Diff; Complete Time: 06:11 ha1 06/19 04:45 Order name: CMP; Complete Time: 06:11 ha1 06/19 04:45 Order name: Lipase; Complete Time: 06:11 ha1 06/19 04:53 Order name: UA Rfx Cj Cult if indicated; Complete Time: 06:11 ha1 06/19 05:06 Order name: CT Abd/Pelvis - IV Contrast Only; Complete Time: 07:34 sp3 06/19 07:38 Order name: Pelvis Complete US; Complete Time: 08:51 ms3 06/19 04:45 Order name: IV Saline Lock; Complete Time: 04:48 ha1 06/19 04:45 Order name: Labs collected and sent; Complete Time: 04:48 ha1 Administered Medications: 04:48 Drug: NS 0.9% IV 1000 ml IV at 1 bolus Per protocol; to be given as a bolus over 60 kb3 minutes Route: IV; Rate: 1 bolus; Site: right antecubital; 09:20 Follow up: IV Status: Completed infusion; IV Intake: 1000ml ap3 04:49 Drug: Ondansetron IVP 4 mg IVP once; over 2 minutes Route: IVP; Site: right antecubital;kb3 05:42 Follow up: Response: No adverse reaction; Nausea is decreased kb3 05:10 Drug: morphine IVP or IV 4 mg IVP once over 4 mins Route: IVP; Infused Over: 4 mins; kb3 Site: right antecubital; 05:42 Follow up: Response: No adverse reaction; Pain is decreased kb3 09:12 Drug: HYDROcodone-acetaminophen PO 5 mg-325 mg 1 tabs PO once Route: PO; ap3 09:20 Follow up: Response: Medication administered at discharge. ap3 Disposition Summary: 06/19/24 09:06 Discharge Ordered Notes: Location: Home ms3 Condition: Stable ms3 Diagnosis - Right sided Ovarian Mass ms3 - RLQ abdominal pain ms3 Followup: ms3 - With: Manju Jones MD - When: 2 - 3 days - Reason: Recheck today's complaints Discharge Instructions: - Discharge Summary Sheet ms3 - Abdominal Pain, Adult, [id number] ms3 - Ovarian Tumors ms3 Forms: - Medication Reconciliation Form ms3 - Antibiotic Education ms3 - Prescription Opioid Use ms3 - Patient Portal Instructions ms3 - Leadership Thank You Letter ms3 Prescriptions: - ondansetron 4 mg Oral Tablet,disintegrating - take 1 tablet ORAL route every 8 hours as needed for nausea and vomiting; 15 ms3 tablet; Refills: 0, Product Selection Permitted Signatures: Dispatcher [employer] EDDipti Toscano, RN RN ap3 Fazal Simpson DO DO ms3 Bipin Oconnell MD MD sp3 Isabella Graves RN RN ha1 Pattie Cain, RN RN kb3 Corrections: (The following items were deleted from the chart) 04:45 04:45 CBC+H.LAB.BRZ ordered. EDMS EDMS 04:45 04:45 COMPREHENSIVE METABOLIC PANEL+C.LAB.BRZ ordered. EDMS EDMS 04:45 04:45 LIPASE+C.LAB.BRZ ordered. EDMS EDMS 06:08 04:49 CBC+H.LAB.BRZ ordered. EDMS EDMS
[2024-06-19 09:48] VITALS: TEMP 97.9
[2024-06-19 09:52] VITALS: O2SAT 99
[2024-06-19 09:53] VITALS: BP 126/79
== END 2024-06-19 09:21 | disposition home or self-care (01) ==
LOC: ER 03:51
DX: N83.8 Other noninflammatory disorders of ovary, fallopian tube and broad ligament (principal); R11.2 Nausea with vomiting, unspecified
CPT/HCPCS: 96361; 85025; 81001; 36415; 83690; 80053; 74177; 76856; 96375; 96374; 99284; Q9967; J2405; J7030